=== PATIENT | male | born 1940 | race Caucasian/White ===

== ENCOUNTER 2016-08-07 14:13 | Emergency (ER) | payer MEDICARE, OTHER ==
[~2016-08-07] VITALS: Ht 167.6 cm; Wt 81.6 kg
[~2016-08-07 14:13] MED LIST: ACTOS30 MG PO; AMARYL2 MG PO; CLEOCIN HCL300 MG PO; PRILOSEC40 MG PO; VASOTEC20 MG PO; VOLTAREN50 M1 PO; [UNRECOGNIZED DRUG - REMARK]
[2016-08-07 14:24] VITALS: BP 142/69
--- NOTE | 2016-08-07 16:37 | NUR ---
DR. PARRA AT BEDSIDE
--- NOTE | 2016-08-07 16:37 | NUR ---
PATIENT PRESENTS TO ED DUE TO S/P MECHANICAL FALL AT HOME X2 AND C/O RIGHT SHOULDER PAIN. HX DM, ARTHRITIS.DENIES N/V/D; SKIN IS PINK/WARM/DRY; AAOX4,USE CANE IN AMBULATION; LUNGS CLEAR BL; HR EVEN AND REGULAR; PT DENIES ANY FEVER, CP, SOB, OR COUGH AT THIS TIME; PATIENT STATES PAIN OF 10/10 AT THIS TIME; PATIENT POSITIONED FOR COMFORT; HOB ELEVATED; BEDRAILS UP X2;NO SWELLING NOTED ON RIGHT SHOULDER AT THIS TIME.
[2016-08-07] MEDS ORDERED: MORPHINE SULFATE 4 MG/ML SYR IM ONE (16:45)
--- NOTE | 2016-08-07 16:55 | NUR ---
PT WENT FOR XRAY VIA BED
--- NOTE | 2016-08-07 17:33 | NUR ---
PT RESTING IN BED WAITING FOR THE RESULT OF XRAY PT SUEO,NIECE AT BEDSIDE. ABLE TO MOVE RIGHT ARM SLIGHTLY.
[2016-08-07 17:52] VITALS: BP 142/68
--- NOTE | 2016-08-07 17:52 | NUR ---
SLING APPLIED ON RIGHT SHOULDER AT THIS TIME
== END 2016-08-07 17:57 | disposition home or self-care (01) ==
LOC: MED 14:13
DX: M19.011 Primary osteoarthritis, right shoulder (principal); I10 Essential (primary) hypertension; E11.9 Type 2 diabetes mellitus without complications; K21.9 Gastro-esophageal reflux disease without esophagitis; Z79.899 Other long term (current) drug therapy
CPT/HCPCS: 71010; 73030; 73090; 96372; 99284; J2270

== ENCOUNTER 2018-08-29 15:11 | Emergency (ER) | payer MEDICARE ==
[~2018-08-29] VITALS: Ht 167.6 cm; Wt 81.6 kg
[~2018-08-29 15:11] MED LIST changes: -ACTOS30 MG PO; -AMARYL2 MG PO; -CLEOCIN HCL300 MG PO; +CLIN300C2 PO; +ENAL20TA46 PO; +GLIM2TAB PO; +OMEP40EC1 PO; +PIOG30TA PO; -PRILOSEC40 MG PO; -VASOTEC20 MG PO; -VOLTAREN50 M1 PO; +[UNRECOGNIZED DRUG - CODE] PO; -[UNRECOGNIZED DRUG - REMARK]
[2018-08-29 15:40] VITALS: BP 136/72
[2018-08-29] MEDS ORDERED: ASPIRIN 325 MG TAB PO ONE (16:30)
[2018-08-29] MEDS ORDERED: NACL 0.9% 1,000 ML IV ONE (16:30)
--- NOTE | 2018-08-29 16:47 | NUR ---
77/M BIB SELF C/O DAWSON,BACK PAIN . DENIES N/V/D; SKIN IS PINK/WARM/DRY; AAOX4. PATIENT STATES PAIN OF 9/10 AT THIS TIME. PATIENT POSITIONED FOR COMFORT; HOB ELEVATED; BEDRAILS UP X2; BED DOWN. ER MD MADE AWARE OF PT STATUS.
[2018-08-29 17:28] LABS: BASOPHILS % (AUTO) 0.2 % (0.0-2.0); EOSINOPHILS % (AUTO) 0.2 % (0.0-4.0); HEMATOCRIT 47.9 % (36-52); HEMOGLOBIN 16.6 g/dL (12.0-18.0); LYMPHOCYTES # (AUTO) 0.6 K/uL (2.0-11.5); LYMPHOCYTES % (AUTO) 5.2 % (20.5-51.1); MEAN CORPUSCULAR HEMOGLOBIN 33 pg (27-31); MEAN CORPUSCULAR HGB CONC 35 g/dL (33-37); MEAN CORPUSCULAR VOLUME 96.1 fL (80-94); MONOCYTES % (AUTO) 9.2 % (1.7-9.3); NEUTROPHILS # (AUTO) 9.3 K/uL (1.8-7.7); NEUTROPHILS % (AUTO) 85.2 % (42.2-75.2); PLATELET COUNT (AUTO) 157 K/uL (140-450); RED BLOOD CELL COUNT(AUTO) 4.99 MIL/uL (4.20-6.10)
--- NOTE | 2018-08-29 17:34 | NUR ---
SON AT BEDSIDE
[2018-08-29 17:42] LABS: ANION GAP 14.3 (8-16); CARBON DIOXIDE 28.7 mmol/L (21-32); CHLORIDE 102 mmol/L (98-107); GLUCOSE 172 mg/dL (74-106); SODIUM SERUM 141 mmol/L (136-145); UREA NITROGEN, BLOOD 15 mg/dL (7-18)
[2018-08-29 17:48] LABS: ALBUMIN 3.8 g/dL (3.4-5.0); ASPARTATE AMINOTRANSFERASE 60 U/L (15-37); MAGNESIUM 1.5 mg/dL (1.8-2.4); TOTAL BILIRUBIN 1.5 mg/dL (0.0-1.0)
[2018-08-29] MEDS ORDERED: MORPHINE SULFATE 4 MG/ML SYR IVP ONE (17:50)
[2018-08-29] MEDS ORDERED: KETOROLAC 15 MG/ML VIAL IVP ONE (17:50)
[2018-08-29 17:51] LABS: FIBRINOGEN 360 mg/dL (200-400); PROTHROMBIN TIME 9.7 secs (10.8-13.4)
[2018-08-29 17:55] LABS: CREATINE KINASE MB 2.6 ng/mL (0-3.6)
[2018-08-29 17:59] LABS: ACETONE, SERUM NEGATIVE (NEGATIVE)
[2018-08-29 18:06] LABS: D-DIMER < 100 ng/ml (0-400)
--- NOTE | 2018-08-29 19:30 | NUR ---
Pt report given to KINJAL YOUNG. Transfer of care at this time.
--- NOTE | 2018-08-29 19:35 | NUR ---
REPORT RECIEVED. PATIENT AWAKE AND ALERT IN BED. GRANDSON AT BEDSIDE.
[2018-08-29 20:39] LABS: APPEARANCE,URINE CLEAR (CLEAR); BILIRUBIN,URINE NEGATIVE (NEGATIVE); BLOOD, URINE NEGATIVE (NEGATIVE); COLOR,URINE YELLOW (YELLOW); LEUKOCYTE ESTERASE ,URINE NEGATIVE (NEGATIVE); NITRITE, URINE NEGATIVE (NEGATIVE); PH,URINE 8.5 (5.0-9.0); UGLUCOSE 1+ (NEGATIVE)
--- NOTE | 2018-08-29 21:00 | NUR ---
NO NEEDS STATED AT THIS TIME.
[2018-08-29 22:08] VITALS: BP 110/62
== END 2018-08-29 22:09 | disposition home or self-care (01) ==
LOC: MED 15:11
DX: B34.9 Viral infection, unspecified (principal); M54.9 Dorsalgia, unspecified; M25.519 Pain in unspecified shoulder; E11.9 Type 2 diabetes mellitus without complications; K21.9 Gastro-esophageal reflux disease without esophagitis; I10 Essential (primary) hypertension; Z90.49 Acquired absence of other specified parts of digestive tract; Z79.899 Other long term (current) drug therapy
CPT/HCPCS: 36415; 36600; 71045; 80053; 81003; 82009; 82550; 82553; 82803; 83735; 84484; 84550; 85025; 85379; 85384; 85610; 85730; 87804; 93005; 96374; 96375; 99284; J1885; J2270; J7030; Q0092